=== PATIENT | female | born 1970 | race Caucasian/White ===

== ENCOUNTER 2018-06-21 11:13 | Emergency (ER) | payer OTHER ==
[2018-06-21] MEDS ORDERED: IOPAMIDOL (ISOVUE 370) 100 ML BTL IV ONE (11:20)
--- NOTE | 2018-06-21 11:21 | EDPHY ---
HPI/HX/ROS/PE/MDM Narrative: CHIEF COMPLAINT: Left-sided paralysis - Stroke Alert HISTORY OF PRESENT ILLNESS: The patient is a 47 y/o female with a history of a meningioma complaining of left-sided paralysis. In November, she developed an abrupt left-sided paresis which lasted for 1-2 hours, onset while resting. At that time she was evaluated at [facility] where she lives and reports admission. Evaluation included CT scans as well as angiogram, EGG, echocardiogram per the patient's history. She attended all follow-ups but no etiology was determined. Last week, after a workout, she developed slight weakness in her left leg that resolved quickly. Today, about 45 minutes ago, after a workout, she developed increasingly worse left-sided paralysis, involving the entirety of her left body. On arrival, her symptoms began to improved, though they fluctuated. She reports taking a baby aspirin daily. Last night she also drank alcohol. She denies any other medical history. At arrival to triage, patient was unable to walk, had significant left-sided facial droop, difficulty speaking, left arm weakness, left leg weakness. While being transferred to the room in a wheelchair she was noted initially to be listing to the left but by the time she was placed in the emergency department room, she was able to stand and self transfer. During my history her symptoms of left leg and left arm weakness significantly resolved. However, while obtaining the history, patient's facial weakness, which had initially improved, once again began to worsen and was quite noted when she was transferred to CT. No headache. No seizure history. Travel here from [place] yesterday. No fever, chills, chest pain, shortness of breath, palpitations, vomiting, diarrhea, urinary complaints, headache, lightheadedness. REVIEW OF SYSTEMS: Aside from elements discussed in the HPI, a comprehensive 10-point review of systems was reviewed and is negative. PAST MEDICAL HISTORY: Meningioma, prior history of left-sided TIAs. Reports having a meningioma resected when she was in her late 30s. SOCIAL HISTORY: Lives in [place], in [employer], alumni of [employer] went to [employer] football game yesterday VITAL SIGNS: Reviewed by me GENERAL: Well-developed, well-nourished, resting comfortably in no respiratory distress. HEENT: Atraumatic. Eyes: No icterus, no injection. Pupils equal round reactive to light. Extraocular movements intact. Slight left-sided facial droop. Mouth : moist mucous membranes. No erythema or lesions. Neck: supple with no adenopathy. LUNGS: Clear to auscultation bilaterally, no wheezes, rhonchi or rales. CARDIAC: Regular rate and rhythm, no rubs, murmurs or gallops. ABDOMEN: Soft, nontender, nondistended, bowel sounds normal. BACK: No CVA tenderness. EXTREMITIES: No trauma. No edema. Range of motion is normal throughout. NEURO: Alert and oriented, cranial nerves II through XII are intact, except for slight left-sided facial weakness. This worsened during the time that I was obtaining the patient's history. Slight weakness in the left leg 4/5. Left hand 4+ over 5. Left-sided facial droop causing slurring of speech. SKIN: Warm and dry, no rash. PSYCHIATRIC: Normal mentation, no agitation. ED Course: I met the patient on arrival in the emergency department. She was being wheeled in by a triage nurse who reports the entirety of her left side was paralyzed. In the chair she was listing to the left. Once in the room her symptoms improved and she was able to slowly move into the bed on her own. While I evaluated her the facial droop returned and she began to slur her speech due to it. Left leg weakness with inability to lift leg fully off bed. After my exam I determined she qualified for a stroke alert and called it. She was taken to CT for CT and CTA of head and neck. Labs ordered including CBC, basic metabolic panel, troponin, coagulation panel, beta-HCG, and iSTAT. EKG ordered. Patient's initial head CT is negative for any hemorrhage. She is noted to have a 5 x 3 cm mass along the base of the skull. On return from CT scan, nurses asked me to examine the patient and she again demonstrates significant left-sided weakness and facial droop. Dr. Guallpa from [facility] is on the tele robot evaluating the patient. He was made aware of the CT findings. During his history and physical, the patient's left arm weakness started to resolve. 11:50 AM - Dr. Guallpa reviewed the patient's CT studies and discussed his recommendations of no tPA with me. Patient is having significant neurologic deficits but there waxing waning character, coming and going. Brain MRI is recommended. No TPA, admit to hospital, and MRI. Course discussed with hospitalist service. Patient will be admitted to Hospital Medicine. Dr. Briggs will be the admitting physician. 12:15 PM - discussed neurology's recommendations with the patient. She is declining admission to the hospital. She is willing to be observed further in the emergency department and have an MRI of the brain obtained. This was ordered. After MRI we will reevaluate her admission. 1:30 PM - MRI does not indicate an acute stroke. I reassessed the patient and informed her of the results of her workup. She still declined admission. She will be released with strict instructions to follow up regarding her visit. She agrees to this course of action and understands that I think admission is the better choice. Long discussion held between the patient, myself, and a good friend of hers. I fully explained my concerns to the patient that she is having stroke-like symptoms, there is a chance that the deficits might developed and not resolve, this may be from other etiologies, such as a arrhythmias, hypoperfusion, partial complex seizures, stress, migraine equivalent. I did discuss with the patient the chance that the symptoms would occur and not resolve and that she would be left with significant neurologic deficits. We discussed that this may represent a cardiac etiology and that further evaluation including monitoring, serial troponins, and close observation were all warranted. The patient continues to wish to be discharged. Please see the AMA form with the patient signed. I provided ample opportunity for her to answer questions. I believe she is a competent decision maker. I believe she understands the risks and benefits of admission and was competent to make decisions regarding her care. I believe she understood my concerns. She reports that she will return to the emergency department should her symptoms recur. She was given a disc of her imaging studies and asked to follow up as soon as she returns to [place]. MDM: Differential diagnoses the patient's presenting complaints was considered including but not limited to intracranial injury, TIA, ischemic cerebrovascular accident, hemorrhagic cerebrovascular accident, hypoglycemia, complex migraine , metastases, tumor, seizure, or electrolyte abnormality - Data Points Imaging Results: Imaging Impressions Head CT 06/21/18 11:15 Impression: 1. No definite acute infarct. 2. Sphenoid expansile solid 5.2 x 2.4 x 3 cm mass that the patient states she has a history of meningioma. This is atypical for hemangioma and is nonspecific. 3. Postsurgical changes of the left temporal fossa with sclerotic expansile thickening of the left sphenoid wing, which may be secondary to meningioma reaction or fibrous dysplasia. 4. No acute hemorrhage, hydrocephalus or mass effect. 5. Recommend MRI of the brain, if there is continued clinical concern. Findings and recommendations discussed with Emergency Department physician, Dr. Priti Holder at 1130 hours on June 21, 2018. Final report concurs with initial preliminary interpretation. Head CTA 06/21/18 11:22 Impression: 1. No evidence of ambler of Abernathy thrombosis or flow-limiting stenosis. 2. Skull base mass involving the sphenoid and clivus region, as described on recent CT. Findings and recommendations discussed with Emergency Department physician, Dr. Priti Holder at 1138 hours on June 21, 2018. Final report concurs with initial preliminary interpretation. Neck CTA 06/21/18 11:22 Impression: 1. No carotid atherosclerotic disease, flow-limiting stenosis, occlusion or dissection. 2. Patent vertebral basilar system without flow-limiting stenosis, occlusion or dissection. Measurement of carotid stenosis is based on the residual internal carotid diameter with [place] Symptomatic Carotid Endarterectomy Trial (NASCET) based stenosis levels. Findings and recommendations discussed with Emergency Department physician, Dr. Priti Holder at 1138 hours on June 21, 2018. Final report concurs with initial preliminary interpretation. Brain MRI 06/21/18 12:11 Impression: 1. No acute infarct, acute hemorrhage, hydrocephalus, midline shift, or herniation. 2. No epidural or subdural hematomas. No intraparenchymal hemorrhage. 3. Sphenoid sinus skull base expansile well defined mass extending from the sphenoid sinus anteriorly into the posterior ethmoid sinuses, eroding the clivus , and extending into bilateral paracavernous regions abutting bilateral cavernous internal carotid arteries, right greater than left, with hyperintense T1 probable proteinaceous material, likely representing a benign complex cystic lesion, such as a mucocele. 4. Postsurgical changes in the left temporal lobe with residual cortical encephalomalacia and thickening of the left sphenoid bone, probably in the region of previous meningioma resection. Findings and recommendations discussed with Emergency Department physician, Dr. Priti Holder at 1310 hours on June 21, 2018. Final report concurs with initial preliminary interpretation. Imaging: Discussed imaging studies w/ banker mason Radiologist Laboratory Results: Laboratory Results 06/21/18 11:15 06/21/18 11:15 06/21/18 06/21/18 06/21/18 11:24 11:20 11:15 WBC RBC Hgb POC Hgb 13.6 gm/dL gm/dL (12.6-16.3) Hct POC Hct 40 % % (38-47) MCV MCH MCHC RDW Plt Count MPV Neut % (Auto) Lymph % (Auto) [place] % (Auto) Eos % (Auto) Baso % (Auto) Nucleat RBC Rel Count Absolute Neuts (auto) Absolute Lymphs (auto) Absolute Monos (auto) Absolute Eos (auto) Absolute Basos (auto) Absolute Nucleated RBC Immature Gran % Immature Gran # PT INR POC Sodium 140 mEq/L mEq/L (135-145) Sodium 140 mEq/L mEq/L (135-145) POC Potassium 4.2 mEq/L mEq/L (3.3-5.0) Potassium 4.4 mEq/L mEq/L (3.3-5.0) POC Chloride 104 mEq/L mEq/L (97-110) Chloride 102 mEq/L mEq/L (97-110) Carbon Dioxide 27 mEq/l mEq/l (22-31) Anion Gap 11 mEq/L mEq/L (8-16) POC BUN 17 mg/dL mg/dL (7-23) BUN 18 mg/dL mg/dL (7-23) Creatinine 0.8 mg/dL mg/dL (0.6-1.0) POC Creatinine 0.8 mg/dL mg/dL (0.6-1.0) Estimated GFR > 60 Glucose 84 mg/dL mg/dL (70-100) POC Glucose 84 mg/dL mg/dL (70-100) Calcium 9.9 mg/dL mg/dL (8.5-10.4) POC Troponin I 0.00 ng/mL ng/mL (0.00-0.08) Beta HCG, Qual 06/21/18 06/21/18 06/21/18 11:15 11:09 11:09 WBC 6.80 10^3/uL 10^3/uL (3.80-9.50) RBC 4.20 10^6/uL 10^6/uL (4.18-5.33) Hgb 12.9 g/dL g/dL (12.6-16.3) POC Hgb Hct 37.9 % L % (38.0-47.0) POC Hct MCV 90.2 fL fL (81.5-99.8) MCH 30.7 pg pg (27.9-34.1) MCHC 34.0 g/dL g/dL (32.4-36.7) RDW 12.7 % % (11.5-15.2) Plt Count 303 10^3/uL 10^3/uL (150-400) MPV 8.8 fL fL (8.7-11.7) Neut % (Auto) 56.4 % % (39.3-74.2) Lymph % (Auto) 32.1 % % (15.0-45.0) [place] % (Auto) 8.7 % % (4.5-13.0) Eos % (Auto) 2.1 % % (0.6-7.6) Baso % (Auto) 0.4 % % (0.3-1.7) Nucleat RBC Rel Count 0.0 % % (0.0-0.2) Absolute Neuts (auto) 3.84 10^3/uL 10^3/uL (1.70-6.50) Absolute Lymphs (auto) 2.18 10^3/uL 10^3/uL (1.00-3.00) Absolute Monos (auto) 0.59 10^3/uL 10^3/uL (0.30-0.80) Absolute Eos (auto) 0.14 10^3/uL 10^3/uL (0.03-0.40) Absolute Basos (auto) 0.03 10^3/uL 10^3/uL (0.02-0.10) Absolute Nucleated RBC 0.00 10^3/uL 10^3/uL (0-0.01) Immature Gran % 0.3 % % (0.0-1.1) Immature Gran # 0.02 10^3/uL 10^3/uL (0.00-0.10) PT 12.7 SEC SEC (12.0-15.0) INR 0.93 (0.83-1.16) POC Sodium Sodium POC Potassium Potassium POC Chloride Chloride Carbon Dioxide Anion Gap POC BUN BUN Creatinine POC Creatinine Estimated GFR Glucose POC Glucose Calcium POC Troponin I Beta HCG, Qual NEGATIVE Point of Care Test Results: Chemistry 06/21/18 06/21/18 11:24 11:20 POC Sodium 140 mEq/L mEq/L (135-145) POC Potassium 4.2 mEq/L mEq/L (3.3-5.0) POC Chloride 104 mEq/L mEq/L (97-110) POC BUN 17 mg/dL mg/dL (7-23) POC Creatinine 0.8 mg/dL mg/dL (0.6-1.0) POC Glucose 84 mg/dL mg/dL (70-100) POC Troponin I 0.00 ng/mL ng/mL (0.00-0.08) ISTAT H&H 06/21/18 11:24 POC Hgb 13.6 gm/dL gm/dL (12.6-16.3) POC Hct 40 % % (38-47) General Time Seen by Provider: 06/21/18 11:15 Initial Vital Signs: Initial Vital Signs Temperature (C) 36.8 C 06/21/18 11:17 Heart Rate 71 06/21/18 11:17 Respiratory Rate 18 06/21/18 11:17 Blood Pressure 128/82 H 06/21/18 11:17 O2 Sat (%) 100 06/21/18 11:17 O2 Delivery Mode Room Air Allergies/Adverse Reactions: No Known Allergies Allergy (Unverified 06/21/18 11:16) Home Medications: Medication Instructions Recorded Aspirin EC [Aspirin EC 81 mg (*)] 81 mg PO DAILY 06/21/18 Herbals/Supplements -Info Only 1 ea PO DAILY 06/21/18 Departure - Departure Disposition: Home, Routine, Self-Care Clinical Impression: Paralysis, Facial droop Condition: Fair Report Scribed for: Priti Holder Report Scribed by: Domitila Mercado Date of Report: 06/21/18 Time of Report: 11:34 Physician Review and Approval Statement: Portions of this note were transcribed by a medical assistant instructor. I personally performed a history, physical exam, medical decision making, and confirmed accuracy of information the transcribed note.
[2018-06-21 11:32] LABS: PLATELET COUNT 303 10^3/uL (150-400)
[2018-06-21 11:48] LABS: INR 0.93 (0.83-1.16); PROTIME(PATIENT) 12.7 SEC (12.0-15.0)
[2018-06-21 14:30] VITALS: BP 128/86
--- NOTE | 2018-06-21 19:57 | CPEKG ---
Test Reason : OPEN Blood Pressure : / mmHG Vent. Rate : 067 BPM Atrial Rate : 067 BPM P-R Int : 217 ms QRS Dur : 081 ms QT Int : 402 ms P-R-T Axes : 255 049 010 degrees QTc Int : 425 ms Sinus or ectopic atrial rhythm Prolonged MO interval Confirmed by Priti Holder [id number]) on 06/21/2018 7:56:50 PM Referred By: Confirmed By:Priti Holder
== END 2018-06-21 14:30 | disposition left against medical advice (07) ==
LOC: UNDOADMOB 12:12
DX: R29.810 Facial weakness (principal); R29.818 Other symptoms and signs involving the nervous system; R93.0 Abnormal findings on diagnostic imaging of skull and head, not elsewhere classified; R29.703 NIHSS score 3; Z86.73 Personal history of transient ischemic attack (TIA), and cerebral infarction without residual deficits
CPT/HCPCS: 82435-PO; 82565-PO; 82947-PO; 84132-PO; 84295-PO; 84484-PO; 84520-PO; 85014-PO; Q9967